=== PATIENT | female | born 1985 | race African-American/Black ===

== ENCOUNTER 2016-12-18 14:23 | Emergency (ER) | payer MEDICAID ==
[2016-12-18 14:32] VITALS: BP 111/94; PULSE 92; RESP 18; TEMP 98.4; O2SAT 99
--- NOTE | 2016-12-18 15:12 | EDPHY ---
H & P Time Seen by Provider: 12/18/16 15:01 HPI/ROS: CHIEF COMPLAINT: Cough shortness of breath HISTORY OF PRESENT ILLNESS: This is a 31-year-old female presenting to the emergency department complaining of cough x7 days, and shortness of breath x2 with activity. Patient states initial symptoms were cold symptoms runny nose and sore throat though symptoms have resolved, patient does state intermittent chills and fever. Nonsmoker no history of respiratory disease. No over-the- counter medications. No chest pain REVIEW OF SYSTEMS: Constitutional: Intermittent fever, chills. Eyes: No discharge. ENT: sore throat which has resolved Cardiovascular: No chest pain, no palpitations. Respiratory: Intermittent productive cough, with shortness of breath. Gastrointestinal: No abdominal pain, no vomiting. Genitourinary: No hematuria. Musculoskeletal: No back pain. Skin: No rashes. Neurological: Intermittent headache with cough Smoking Status: Never smoked Physical Exam: General Appearance: Alert, no distress. Eyes: Pupils equal and round no pallor or injection. ENT, Mouth: Mucous membranes moist. Respiratory: There are no retractions, productive cough noted on exam, lungs are decreased at the bases, nonlabored respiratory effort Cardiovascular: Regular rate and rhythm. Gastrointestinal: Abdomen is soft and nontender, no masses, bowel sounds normal. Neurological: No focal deficits Skin: Warm and dry, no rashes. Musculoskeletal: Neck is supple nontender. Extremities: symmetrical, full range of motion. Psychiatric: Patient is oriented X 3, there is no agitation. Constitutional: Initial Vital Signs Temperature (C) 36.9 C 12/18/16 14:23 Heart Rate 92 12/18/16 14:23 Respiratory Rate 18 12/18/16 14:23 Blood Pressure 111/94 H 12/18/16 14:23 O2 Sat (%) 99 12/18/16 14:23 O2 Delivery Mode Room Air Allergies/Adverse Reactions: codeine [Codeine] Allergy (Mild, Verified 12/18/16 14:30) nausea acetaminophen [From Vicodin] Allergy (Verified 12/18/16 14:30) hydrocodone bitartrate [From Vicodin] Allergy (Verified 12/18/16 14:30) Home Medications: Medication Instructions Recorded AZITHROMYCIN [Z-PACK] 250 mg PO DAILY #6 tab 12/18/16 Albuterol Sulfate [Proair Hfa] 8.5 gm IH Q4-6PRN PRN #0 [email or web address] 12/18/16 predniSONE 50 mg PO DAILY #5 tablet 12/18/16 Medical Decision Making - Diagnostics Imaging Results: Imaging Impressions Chest X-Ray 12/18/16 15:12 Impression: No definite pneumonia. ED Course/Re-evaluation: Discussed the plan of care: chest x-ray 1600: Discussed no acute findings on x-ray 1615: Discussed discharge instructions, no apparent distress nonlabored respiratory effort. Discharge home---> stable Differential Diagnosis: Other differential diagnosis considered but not limited to pneumonia, pleural effusion and pneumothorax Departure - Departure Disposition: Home, Routine, Self-Care Clinical Impression: Bronchitis Condition: Good Instructions: Acute Bronchitis (ED), Bronchospasm (ED), How Your Lungs Work (ED ) Additional Instructions: The discussed discharge instructions 1. X-rays show no pneumonia, you will be treated for bronchitis 2. Take all medications as prescribed. 3. You can also take dextromethorphan which is a cough suppressant 4. Humidified air can be beneficial also. Follow up with their primary care provider as needed Referrals: JAMAICA CHANDLER MD [Other] - As per Instructions Prescriptions: Albuterol Sulfate [Proair Hfa] 8.5 gm IH Q4-6PRN PRN #0 hfa.[email or web address] PRN Reason: Cough, Mild AZITHROMYCIN [Z-PACK] 250 mg PO DAILY #6 tab predniSONE 50 mg PO DAILY #5 tablet
== END 2016-12-18 16:21 | disposition home or self-care (01) ==
DX: J20.9 Acute bronchitis, unspecified (principal)